=== PATIENT | male | born 1990 ===

== ENCOUNTER 2025-03-23 08:28 | Emergency (ER) | payer BC ==
[2025-03-23] MEDS ORDERED: Sodium Chloride 0.9% 20 ML SDV IV PRN (08:56)
[2025-03-23] MEDS ORDERED: Sodium Chloride 0.9% 2.5 ML Syringe FLUSH PRN (08:56)
[2025-03-23] MEDS ORDERED: Sodium Chloride 0.9% 10 ML Syringe FLUSH PRN (08:56)
[2025-03-23 09:04] LABS: BASOPHILS ABSOLUTE AUTO 0.07 K/uL (0.00-0.20); EOSINOPHILS ABSOLUTE AUTO 0.31 K/uL (0.00-0.45); EOSINOPHILS PERCENT AUTO 4.3 % (0.0-6.0); HEMATOCRIT 45.4 % (42.0-52.0); HEMOGLOBIN 15.7 g/dL (14.0-18.0); IMMATURE GRAN ABSOLUTE AUTO 0.01 K/uL (0.00-0.05); IMMATURE GRAN PERCENT AUTO 0.1 % (0.0-0.4); LYMPHOCYTES ABSOLUTE AUTO 2.01 K/uL (1.00-4.80); LYMPHOCYTES PERCENT AUTO 28.1 % (24.0-44.0); MEAN CORPUSCULAR HEMOGLOBIN 29.8 pg (28.0-32.0); MEAN CORPUSCULAR HGB CONC 34.6 g/dL (32.0-36.0); MEAN CORPUSCULAR VOLUME 86.1 fL (83.0-99.0); MEAN PLATELET VOLUME 10.4 fL (9.4-12.4); MONOCYTES ABSOLUTE AUTO 0.66 K/uL (0.00-0.80); MONOCYTES PERCENT AUTO 9.2 % (0.0-8.0); NEUTROPHILS PERCENT AUTO 57.3 % (41.0-71.0); PLATELET COUNT,PLT 289 K/uL (150-400); RED BLOOD CELL COUNT 5.27 M/uL (4.52-5.90); WHITE BLOOD CELL COUNT,WBC 7.16 K/uL (3.9-11.3)
[2025-03-23] MEDS: Ketorolac 30 MG/ML SDV IVPUSH ONE (09:05)
[2025-03-23] MEDS: Metoclopramide 10 MG/2 ML SDV IVPUSH ONE (09:05)
[2025-03-23] MEDS: fentaNYL 50 MCG/ML SDV IVPUSH ONE ×2 (09:05→09:33)
[2025-03-23] MEDS ORDERED: Naloxone 0.4 MG/ML SDV IVPUSH PRN ×2 (09:15→09:28)
[2025-03-23 09:18] LABS: A/G RATIO 1.5 (0.9-1.6); ALBUMIN 4.5 g/dL (3.4-5.0); BILIRUBIN TOTAL 0.7 mg/dL (0.2-1.0); CARBON DIOXIDE,CO2 22.7 mmol/L (21.0-32.0); CREATININE 1.2 mg/dL (0.8-1.3); EST CRCL DRUG DOSING (CG) 93.41 mL/min; MAGNESIUM 1.9 mg/dL (1.8-2.4); POTASSIUM,K 3.8 mmol/L (3.5-5.1); PROTEIN TOTAL,TP 7.6 g/dL (6.4-8.2)
[2025-03-23] MEDS: HYDROmorphone 1 MG/ML Syringe IVPUSH ONE (09:28)
[2025-03-23 09:52] LABS: LACTIC ACID 1.8 mmol/L (0.4-2.0)
[2025-03-23] MEDS: Iopamidol 755 Mg/ML 100 ML Bottle IVPUSH ONE (09:59)
[2025-03-23] MEDS: Sodium Chloride 0.9% 1,000 ML IV ONE (10:59)
[2025-03-23 11:07] LABS: BILIRUBIN,URINE NEGATIVE (NEGATIVE); COLOR,URINE YELLOW; GLUCOSE,URINE NEGATIVE (NEGATIVE); KETONES,URINE 15 mg/dL (NEGATIVE); LEUKOCYTE ESTERASE,URINE NEGATIVE (NEGATIVE); NITRITE,URINE NEGATIVE (NEGATIVE); OCCULT BLOOD,URINE LARGE (NEGATIVE); PH,URINE 5.5 (5.0-8.0); PROTEIN,URINE NEGATIVE (NEGATIVE); UROBILINOGEN,URINE 0.2 EU/dL (<2.0)
[2025-03-23 11:08] LABS: APPEARANCE,URINE HAZY
[2025-03-23 11:14] LABS: BACTERIA,URINE FEW (NEGATIVE); EPITHELIAL CELLS,URINE RARE (NONE-FEW); WBC,URINE 0-2 (0-5/HPF)
== END 2025-03-23 12:21 | disposition home or self-care (01) ==
LOC: MW.ED 08:28
DX: N20.2 Calculus of kidney with calculus of ureter (principal)
CPT/HCPCS: 36415; 74178; 80053; 81001; 83605; 83690; 83735; 84484; 85025; 87040; 93005; 96361; 96374; 96375; 99284; J1885; J2765; J3010; J7030; Q9967; 99283